=== PATIENT | male | born 1990 | race Caucasian/White ===

== ENCOUNTER 2024-03-08 20:04 | Emergency (ER) | payer BC ==
[~2024-03-08] VITALS: Ht 177.8 cm; Wt 99.8 kg
[2024-03-08] MEDS ORDERED: IBUPROFEN 600 MG TABLET ONE (21:43)
[2024-03-08] MEDS ORDERED: ACETAMINOPHEN ES 500 MG TABLET ONE (21:43)
[2024-03-08] MEDS ORDERED: TDAP [DIPH/PERTUSSIS/TET] 0.5 ML VIAL IM ONE (21:44)
[2024-03-08] MEDS: IBUPROFEN 600 MG TABLET PO ONE (21:52)
[2024-03-08] MEDS: ACETAMINOPHEN ES 500 MG TABLET PO ONE (21:52)
[2024-03-08] MEDS: TDAP [DIPH/PERTUSSIS/TET] 0.5 ML VIAL IM ONE (21:52)
[2024-03-08] MEDS ORDERED: HYDR-4303 PO (23:24)
[2024-03-08] MEDS ORDERED: IBUP-1953 PO (23:24)
[2024-03-09 00:40] VITALS: BP 141/86; TEMP 98.5; O2SAT 98
== END 2024-03-09 00:40 | disposition home or self-care (01) ==
LOC: ER 20:07
DX: S92.125A Nondisplaced fracture of body of left talus, initial encounter for closed fracture (principal); S80.211A Abrasion, right knee, initial encounter; X50.1XXA Overexertion from prolonged static or awkward postures, initial encounter; Y93.K1 Activity, walking an animal; Y92.480 Sidewalk as the place of occurrence of the external cause; Y99.8 Other external cause status
CPT/HCPCS: 29515; 73610; 90471; 90715; 99283; A6403